=== PATIENT | male | born 1980 | race Hispanic/Latino ===

== ENCOUNTER 2017-01-28 14:45 | Emergency (ER) | payer OTHER ==
[2017-01-28 15:43] LABS: Basophils % (Auto) 0.8 % (0.0-1.8); Eosinophils % (Auto) 3.7 % (0.0-4.3); Hematocrit 48.3 % (35.5-45.6); Mean Corpuscular HGB Conc 33 % (32-34); Mean Corpuscular Hemoglobin 30 pg (28-32); Mean Corpuscular Volume 91 fl (84-94); Platelet Count 265 K/mm3 (140-440); Red Blood Count 5.34 M/mm3 (3.65-5.03); Red Cell Distribution Width 13.5 % (13.2-15.2); White Blood Count 11.5 K/mm3 (4.5-11.0)
[2017-01-28 16:05] LABS: Alanine Aminotransferase 11 units/L (7-56); Albumin 4.1 g/dL (3.9-5); Albumin/Globulin Ratio 1.8 %; Alkaline Phosphatase 85 units/L (35-129); Anion Gap 18 mmol/L; BUN/Creatinine Ratio 13; Blood Urea Nitrogen 13 mg/dL (9-20); Calcium 8.7 mg/dL (8.4-10.2); Carbon Dioxide 24 mmol/L (22-30); Chloride 101.1 mmol/L (98-107); Glucose 73 mg/dL (75-100); Lipase 26 units/L (13-60); Potassium 4.2 mmol/L (3.6-5.0); Sodium 139 mmol/L (137-145); Total Protein 6.4 g/dL (6.3-8.2)
[2017-01-28] MEDS ORDERED: NACL 0.9% 1000 ML 1,000 ML IV ONE (17:38)
[2017-01-28 17:48] LABS: Urine Drugs of Abuse Note Disclamer
--- NOTE | 2017-01-28 17:53 | Emergency Department Report ---
HPI - General Chief Complaint: Abdominal Pain Time Seen by Provider: 01/28/17 17:32 - HPI HPI: Room 5 The patient is a 36-year-old male presenting with a chief complaint of abdominal pain. The patient states for the past 4-5 days he's had diffuse constant pain. Patient admits to nausea but denies vomiting. Patient denies diarrhea. Patient denies fever or unexplained weight loss. Patient denies previous episodes of same. Location: Diffuse abdomen Duration: Constant 4-5 days Quality: Pain Severity: Moderate Modifying factors: [see above] Context: [see above] Mode of transportation: Unknown ED Past Medical Hx - Past Medical History Previous Medical History?: Yes Hx Asthma: Yes - Surgical History Additional Surgical History: traumatic eye socket OR - Family History Family history: no significant - Social History Smoking Status: Current Every Day Smoker (1/2 pack per day) Substance Use Type: Marijuana - Medications Home Medications: Home Medications Medication Instructions Recorded Confirmed Last Taken Type Cephalexin [Keflex] 500 mg PO Q6H #40 capsule 06/04/14 06/06/14 06/06/14 Rx HYDROcodone/ACETAMINOPHEN [[place] 1 each PO Q6HR #25 tablet 06/04/14 06/06/1408/15 Rx 7.5-325 mg TAB] Ibuprofen [Motrin 600 MG tab] 600 mg PO Q8H PRN #40 tablet 06/04/14 06/06/1408/15 Rx Sulfamethoxazole/Trimethoprim 1 each PO BID #20 tablet 06/04/14 06/06/14 Rx [Bactrim DS TAB] Famotidine [Pepcid] 20 mg PO BID #30 tablet 01/28/17 Unknown Rx Promethazine [Phenergan TAB] 25 mg PO Q6HR PRN #20 tab 01/28/17 Unknown Rx traMADol [Ultram] 50 mg PO Q6HR PRN #10 tablet 01/28/17 Unknown Rx ED Review of Systems ROS: Stated complaint: DIARRHEA Other details as noted in HPI Constitutional: denies: fever Endocrine: denies: unexplained weight loss Gastrointestinal: abdominal pain, nausea. denies: vomiting, diarrhea Physical Exam - Physical Exam Vital Signs: Vital Signs 01/28/17 01/28/17 15:01 16:58 Temperature 98.4 F Pulse Rate 117 H 104 H Respiratory 22 Rate Blood Pressure 134/84 Blood Pressure 124/84 [Left] O2 Sat by Pulse 100 Oximetry Physical Exam: GENERAL: The patient is well-developed well-nourished male sleeping on stretcher not appearing to be in acute distress. Patient wakens to answer questions but then falls back to sleep HEENT: Normocephalic. Atraumatic NECK: Supple. Trachea midline HEART/CARDIOVASCULAR: Regular. There is no tachycardia. There is no gallop rub or murmur. ABDOMEN: Abdomen is soft, with diffuse discomfort to palpation. Patient has normal bowel sounds. There is no abdominal distention. SKIN: There is no rash. There is no edema. There is no diaphoresis. NEURO: The patient is asleep but awakens momentarily to become alert, and oriented. The patient is cooperative. deficits. The patient has normal speech MUSCULOSKELETAL: There is no evidence of acute injury. ED Course Vital Signs 01/28/17 01/28/17 15:01 16:58 Temperature 98.4 F Pulse Rate 117 H 104 H Respiratory 22 Rate Blood Pressure 134/84 Blood Pressure 124/84 [Left] O2 Sat by Pulse 100 Oximetry ED Medical Decision Making - Lab Data Result diagrams: 01/28/17 15:23 01/28/17 15:23 Laboratory Tests 01/28/17 01/28/17 01/28/17 15:23 15:23 17:17 WBC 11.5 H RBC 5.34 H Hgb 16.0 H Hct 48.3 H MCV 91 MCH 30 MCHC 33 RDW 13.5 Plt Count 265 Lymph % (Auto) 14.1 Harmon % (Auto) 7.4 H Eos % (Auto) 3.7 Baso % (Auto) 0.8 Lymph # 1.6 Harmon # 0.9 H Eos # 0.4 Baso # 0.1 Seg Neutrophils % 74.0 H Seg Neutrophils # 8.5 H Sodium 139 Potassium 4.2 Chloride 101.1 Carbon Dioxide 24 Anion Gap 18 BUN 13 Creatinine 1.0 Estimated GFR > 60 BUN/Creatinine Ratio 13 Glucose 73 L Calcium 8.7 Total Bilirubin 0.40 AST 11 ALT 11 Alkaline Phosphatase 85 Total Protein 6.4 Albumin 4.1 Albumin/Globulin Ratio 1.8 Lipase 26 Urine Color Yellow Urine Turbidity Clear Urine pH 5.0 Ur Specific [place] 1.021 Urine Protein <15 mg/dl Urine Glucose (UA) Neg Urine Ketones 20 Urine Blood Sm Urine Nitrite Neg Urine Bilirubin Neg Urine Urobilinogen < 2.0 Ur Leukocyte Esterase Tr Urine WBC (Auto) 10.0 H Urine RBC (Auto) 20.0 U Epithel Cells (Auto) < 1.0 Urine Bacteria (Auto) 1+ Calcium Oxalate Crystal Few Urine Mucus 1+ Urine Sperm Few Urine Opiates Screen Urine Methadone Screen Ur Barbiturates Screen Ur Phencyclidine Scrn Ur Amphetamines Screen U Benzodiazepines Scrn Urine Cocaine Screen U Marijuana (THC) Screen 01/28/17 Unknown WBC RBC Hgb Hct MCV MCH MCHC RDW Plt Count Lymph % (Auto) Harmon % (Auto) Eos % (Auto) Baso % (Auto) Lymph # Harmon # Eos # Baso # Seg Neutrophils % Seg Neutrophils # Sodium Potassium Chloride Carbon Dioxide Anion Gap BUN Creatinine Estimated GFR BUN/Creatinine Ratio Glucose Calcium Total Bilirubin AST ALT Alkaline Phosphatase Total Protein Albumin Albumin/Globulin Ratio Lipase Urine Color Urine Turbidity Urine pH Ur Specific [place] Urine Protein Urine Glucose (UA) Urine Ketones Urine Blood Urine Nitrite Urine Bilirubin Urine Urobilinogen Ur Leukocyte Esterase Urine WBC (Auto) Urine RBC (Auto) U Epithel Cells (Auto) Urine Bacteria (Auto) Calcium Oxalate Crystal Urine Mucus Urine Sperm Urine Opiates Screen Presumptive negative Urine Methadone Screen Presumptive negative Ur Barbiturates Screen Presumptive negative Ur Phencyclidine Scrn Presumptive negative Ur Amphetamines Screen Presumptive positive U Benzodiazepines Scrn Presumptive negative Urine Cocaine Screen Presumptive positive U Marijuana (THC) Screen Presumptive positive - Differential Diagnosis gastroenteritis, gastritis, partial small bowel obstruction, Critical care attestation.: If time is entered above; I have spent that time in minutes in the direct care of this critically ill patient, excluding procedure time. ED Disposition Clinical Impression: Acute abdominal pain, Polysubstance abuse Disposition: [id number] TO HOME OR SELFCARE Is pt being admited?: No Does the pt Need Aspirin: No Condition: Stable Instructions: Cocaine Abuse (ED), Acute Abdominal Pain (ED), Methamphetamine Abuse (ED) Additional Instructions: Return to the emergency department immediately should you develop worsening symptoms, fever, inability to tolerate food or liquid or any other concerns. Prescriptions: Famotidine [Pepcid] 20 mg PO BID #30 tablet Promethazine [Phenergan TAB] 25 mg PO Q6HR PRN #20 tab PRN Reason: Nausea traMADol [Ultram] 50 mg PO Q6HR PRN #10 tablet PRN Reason: Pain Referrals: PRIMARY CARE,MD [Primary Care Provider] - 3-5 Days BARON FELIX MD [Staff Physician] - [facility] (Dr. Felix is a receiving inspector. Please follow up with him for further evaluation)
[2017-01-28 18:02] LABS: Bacteria,Urine 1+ /HPF (Negative); Bilirubin,Urine NEG (Negative); Blood,Urine SM (Negative); Ketones,Urine 20 mg/dL (Negative); Leukocyte Esterase,Urine TR (Negative); Mucus,Urine 1+ /HPF; Nitrite,Urine NEG (Negative); Protein,Urine <15 mg/dL mg/dL (Negative); Sperm,Urine FEW /HPF (NP); Urobilinogen,Urine < 2.0 mg/dL (<2.0)
[2017-01-28] MEDS ORDERED: NACL ONE (19:23)
--- NOTE | 2017-01-28 20:32 | Cat Scan Report ---
FINAL REPORT PROCEDURE: CT ABDOMEN PELVIS W CON TECHNIQUE: Computerized axial tomography of the abdomen and pelvis was performed after the IV injection of iodinated nonionic contrast. HISTORY: abdominal pain nausea vomiting COMPARISON: No prior studies are available for comparison. FINDINGS: Lower Lung nielson: There is a small amount of dependent atelectasis. Lung bases otherwise are unremarkable. Upper Abdomen: There are several similar appearing low-density nodules scattered in the right lobe of the liver measuring up to 8 millimeters. These appear to represent small hepatic cyst. The liver is otherwise unremarkable. The gallbladder is partially contracted otherwise is unremarkable. No adrenal abnormalities are visualized. The pancreas and the spleen show no abnormalities. Kidneys, Ureters and Urinary bladder: There are 2 small nonobstructing calculi in the upper 3rd of the right kidney, 1 measures 2.2 millimeters the other 2.7 millimeters. The kidneys, the ureters and urinary bladder otherwise are unremarkable. Additional calcifications are seen in the lower pelvis which appear to represent phleboliths. Retroperitoneum: Abdominal aorta appears normal. Nonspecific subcentimeter lymph nodes are seen in the retroperitoneum. No pathologically enlarged lymph nodes are identified. Bowel: The jacobson of the small bowel in the left upper quadrant appear thickened as well as mild prominence of the mucosal folds. I cannot exclude a nonspecific enteritis. Distal small bowel loops are fluid filled and minimally distended. The colon is also diffusely fluid filled. I cannot exclude a nonspecific enteritis and possible ileus. I do not see evidence of bowel obstruction. There are no transition zones visualized. Normal-appearing appendix is visualized in the right lower quadrant. No ascites or free intraperitoneal gas or visualized Reproductive organs: Prostate gland does not appear to be enlarged Other: Schmorl's node appears to be visualized in the superior endplate L1. No acute bony abnormalities are identified. IMPRESSION: Wall thickening and mucosal prominence visualized small bowel left upper quadrant suggesting a nonspecific enteritis. There is fluid collected throughout the remainder of the small bowel and colon. I cannot exclude intestinal ileus. I do not see a transition zone that would suggest an obstruction. No ascites or free intraperitoneal gas is seen. Two small nonobstructing calculi visualize right kidney.
[2017-01-28 22:16] VITALS: BP 128/71
== END 2017-01-28 22:15 | disposition home or self-care (01) ==
LOC: ED 14:45
DX: R10.84 Generalized abdominal pain (principal); R11.0 Nausea; F12.10 Cannabis abuse, uncomplicated; F17.200 Nicotine dependence, unspecified, uncomplicated
CPT/HCPCS: 36415; 74177; 80053; 80307; 81001; 83690; 85025; 96360; 99284; J7030; Q9967